=== PATIENT | female | born 1995 | race Caucasian/White ===

== ENCOUNTER 2017-01-11 04:56 | Emergency (ER) | payer MEDICAID | END 2017-01-11 05:32 | disposition home or self-care (01) | DX: H61.23 Impacted cerumen, bilateral (principal); J45.909 Unspecified asthma, uncomplicated ==

== ENCOUNTER 2017-05-30 13:44 | Emergency (ER) | payer MEDICAID ==
[2017-05-30 13:57] VITALS: BP 119/79
[2017-05-30] MEDS ORDERED: IBUPROFEN 800 MG TABLET PO STA (15:25)
--- NOTE | 2017-05-30 15:27 | ED Physician Documentation ---
PD HPI LOWER EXT INJURY - Stated complaint Stated Complaint: L 2ND TOE PAIN - Chief complaint Chief Complaint: Ext Problem - History obtained from History obtained from: Patient - History of Present Illness PD HPI LOW EXT INJURY LOCATION: Left, Toe (2nd, 3rd) Where injury occurred: Home Timing - onset: How many days ago (2-3) Timing - duration: Days Timing - details: Gradual onset Pain level max: 7 Pain level now: 1 Improved by: Rest, Immobilization Worsened by: Moving, Palpating, Other (Ambulation) Associated symptoms: No: Weakness, Numbness, Tingling, Swelling, Discolored - Additional information Additional information: Patient states that she hurt her left second toe while doing lunges. 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 : None HEENT: None Musculoskeletal: None Derm: None - Past Surgical History Past Surgical History: Yes HEENT: Myringotomy (tubes) - Present Medications Home Medications: Ambulatory Orders Medication Instructions Recorded Confirmed Bcp 1 tab PO DAILY 04/05/14 01/11/17 Lamotrigine [Lamictal] 250 mg PO DAILY 04/05/14 01/11/17 Carbamide Peroxide Otic Drop 10 drops OT ONCE #1 bottle 01/11/17 [Debrox Otic Drops] Ergocalciferol [Vitamin D2] 50,000 unit PO Q7D 01/11/17 01/11/17 - Allergies Allergies/Adverse Reactions: Allergies Allergy/AdvReac Type Severity Reaction Status Date / Time No Known Drug Allergies Allergy Verified 01/11/17 05:02 - Social History Does the pt smoke?: No Smoking Status: Never smoker Does the pt drink ETOH?: No Does the pt have substance abuse?: No - Immunizations Immunizations are current?: Yes - POLST Patient has POLST: No PD ED PE NORMAL - Vitals Vital signs reviewed: Yes - General General: Alert and oriented X 3, No acute distress - Derm Derm: Warm and dry - Extremities Extremities: Other (No tenderness to palpation over the left foot including the toes. No swelling. No ecchymosis. There is pain with ambulation or flexion/ extension of the second and third toes. Neurovascularly intact) - Neuro Neuro: Alert and oriented X 3 - Psych Psych: Normal mood, Normal affect Results - Vitals Vitals: Vital Signs - 24 hr 05/30/17 13:52 Temperature 36.0 C L Heart Rate 113 H Respiratory 20 Rate Blood Pressure 119/79 O2 Saturation 99 Oxygen O2 Source Room air PD MEDICAL DECISION MAKING - ED course Complexity details: considered differential, d/w patient, d/w family ED course: Patient is a 21-year-old female with a left second and third toe sprain. No bony tenderness to suggest fracture. No ecchymosis. No swelling. Will place in the postoperative shoe. Patient to follow-up with her PCP. Patient counseled regarding signs and symptoms for which I believe and urgent re- evaluation would be necessary. Patient with good understanding of and agreement to plan and is comfortable going home at this time This document was made in part using voice recognition software. While efforts are made to proofread this document, sound alike and grammatical errors may occur. Departure - Departure Disposition: 01 Home, Self Care Clinical Impression: Sprain of toe Qualifiers: Encounter type: initial encounter Qualified Code(s): S93.509A - Unspecified sprain of unspecified toe(s), initial encounter Condition: Good Instructions: ED Sprain Toe Follow-Up: Nalini Beyer ARNP [Primary Care Provider] - Within 1 week Comments: Wear the postoperative shoe for at least the next week. This should help with the pain and allow the toe to heal. Return if you worsen Discharge Date/Time: 05/30/17 15:45
[2017-05-30] MEDS ORDERED: IBUPROFEN 600 MG TABLET PO ONE (15:32)
[2017-05-30] MEDS ORDERED: IBUPROFEN 600 MG TABLET PO STA (15:37)
== END 2017-05-30 15:45 | disposition home or self-care (01) ==
LOC: ED 13:44
DX: S93.505A Unspecified sprain of left lesser toe(s), initial encounter (principal); X50.0XXA Overexertion from strenuous movement or load, initial encounter; Y93.B9 Activity, other involving muscle strengthening exercises; Y92.019 Unspecified place in single-family (private) house as the place of occurrence of the external cause; J45.909 Unspecified asthma, uncomplicated
CPT/HCPCS: 99282; 99283; A9270

== ENCOUNTER 2017-06-03 11:12 | Emergency (ER) | payer MEDICAID ==
[2017-06-03] MEDS ORDERED: IBUPROFEN 400 MG TABLET PO STA (12:11)
[2017-06-03] MEDS ORDERED: IBUPROFEN 400 MG TABLET PO ONE (12:18)
--- NOTE | 2017-06-03 12:55 | XRAY Preliminary Report ---
Exam: XR Toe(s) LT IMPRESSION: Negative toe radiography. [facility] SITE ID: [id number]
--- NOTE | 2017-06-03 12:56 | XRAY Report ---
EXAM: LEFT TOE RADIOGRAPHY EXAM DATE: 06/03/2017 12:39 PM. CLINICAL HISTORY: 2nd toe pain after twist. COMPARISON: None. TECHNIQUE: 3 views. FINDINGS: Bones: Normal. No fracture or bone lesion. Joints: Normal. No subluxations. Soft Tissues: Normal. No soft tissue swelling. IMPRESSION: Negative toe radiography. [facility] Referring Provider Line: [phone] SITE ID: [id number]
--- NOTE | 2017-06-03 13:40 | ED Physician Documentation ---
History of Present Illness - Stated complaint Stated Complaint: BILAT FOOT PX - Chief complaint Chief Complaint: Ext Problem - Additonal information Additional information: 21 y/o f twisetd her L foot several weeks ago pain to L 2nd toe since now her right foot hurts too seen in ER for same, dx sprain, rec hard sole shoe and motrin, wearing shoe, last took motrin 4 days ago, sill has pain, has not seen PMD for same Review of Systems : reports: LMP (approx 1-2 weeks ago) PD PAST MEDICAL HISTORY - Past Medical History Cardiovascular: Murmur Respiratory: Asthma Neuro: Seizure disorder Endocrine/Autoimmune: None GI: None 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 : None HEENT: None Musculoskeletal: None Derm: None - Past Surgical History Past Surgical History: Yes HEENT: Myringotomy (tubes) - Present Medications Home Medications: Ambulatory Orders Medication Instructions Recorded Confirmed Bcp 1 tab PO DAILY 04/05/14 06/03/17 Lamotrigine [Lamictal] 250 mg PO DAILY 04/05/14 06/03/17 Carbamide Peroxide Otic Drop 10 drops OT ONCE #1 bottle 01/11/17 06/03/17 [Debrox Otic Drops] Ergocalciferol [Vitamin D2] 50,000 unit PO Q7D 01/11/17 06/03/17 - Allergies Allergies/Adverse Reactions: Allergies Allergy/AdvReac Type Severity Reaction Status Date / Time No Known Drug Allergies Allergy Verified 06/03/17 11:44 - Social History Does the pt smoke?: No Smoking Status: Never smoker Does the pt drink ETOH?: No Does the pt have substance abuse?: No - Immunizations Immunizations are current?: Yes - POLST Patient has POLST: No PD ED PE NORMAL - Vitals Vital signs reviewed: Yes - Extremities Extremities: Other (vinny feet : no deformity, no pain with ROM, pt states toe hurts with wt bearing, MSV intact) Results - Vitals Vitals: Vital Signs - 24 hr 06/03/17 11:22 Temperature 36.2 C L Heart Rate 92 Respiratory 18 Rate Blood Pressure 130/88 H O2 Saturation 100 Oxygen O2 Source Room air PD MEDICAL DECISION MAKING - ED course ED course: L hurts more so xrayed that food and it is neg Departure - Departure Disposition: 01 Home, Self Care Clinical Impression: Sprain of foot, unspecified site Qualifiers: Encounter type: initial encounter Laterality: unspecified laterality Qualified Code(s): S93.609A - Unspecified sprain of unspecified foot, initial encounter Condition: Good Instructions: ED Sprain Foot Follow-Up: Nalini Beyer ARNP [Primary Care Provider] - Comments: The xray was fine - no fracture Continue the motrin as needed for pain and the hard sole shoe. Ice applied for 20 min at a time and elevation will help too And please have your PMD recheck your blood pressure - it was high today
[2017-06-03 13:57] VITALS: BP 119/77
== END 2017-06-03 13:55 | disposition home or self-care (01) ==
LOC: ED 11:12
DX: S93.601A Unspecified sprain of right foot, initial encounter (principal); S93.602A Unspecified sprain of left foot, initial encounter; X58.XXXA Exposure to other specified factors, initial encounter; J45.909 Unspecified asthma, uncomplicated
CPT/HCPCS: 73660; 99282; 99283; A9270

== ENCOUNTER 2017-06-10 10:04 | Outpatient (CLI) | payer MEDICAID ==
[2017-06-10 13:23] LABS: ALBUMIN/GLOBULIN RATIO 1.1 (1.0-2.2); BILIRUBIN,TOTAL 0.4 mg/dL (0.2-1.0); CALCIUM 9.3 mg/dL (8.5-10.3); CREATININE 0.7 mg/dL (0.4-1.0); POTASSIUM 4.1 mmol/L (3.5-5.0); TOTAL PROTEIN 7.5 g/dL (6.7-8.2)
== END 2017-06-10 10:05 | disposition home or self-care (01) ==
LOC: LAB.N 10:04
PROVIDERS: ATTEND Nurse Practitioner Gerontology
DX: Q85.1 Tuberous sclerosis (principal)
CPT/HCPCS: 36415; 80053; 82043

== ENCOUNTER 2017-10-10 16:39 | Emergency (ER) | payer MEDICAID ==
[2017-10-10 17:35] VITALS: BP 122/82
--- NOTE | 2017-10-10 18:23 | XRAY Preliminary Report ---
Exam: XR HAND 3 VIEW LT IMPRESSION: No fracture. [facility] SITE ID: [id number]
--- NOTE | 2017-10-10 18:26 | XRAY Report ---
EXAM: LEFT HAND RADIOGRAPHY EXAM DATE: 10/10/2017 05:51 PM. CLINICAL HISTORY: Injured fingers when hand jammed against door. COMPARISON: None. TECHNIQUE: 3 views. FINDINGS: Bones: Normal. No fractures or bone lesions. Joints: Normal. No subluxations. Soft Tissues: No soft tissue foreign body. IMPRESSION: No fracture. [facility] Referring Provider Line: [phone] SITE ID: [id number]
--- NOTE | 2017-10-10 18:32 | ED Physician Documentation ---
PD HPI UPPER EXT INJURY - Stated complaint Stated Complaint: FINGER INJURY - Chief complaint Chief Complaint: Ext Problem - History obtained from History obtained from: Patient - History of Present Illness Location: Other (She jammed her left fourth and fifth fingers into a door earlier today and has mild pain in the area of the interphalangeal joints of the fourth and fifth fingers.) Review of Systems Constitutional: reports: Reviewed and negative Cardiac: reports: Reviewed and negative Respiratory: reports: Reviewed and negative PD PAST MEDICAL HISTORY - Past Medical History Past Medical History: Yes Cardiovascular: Murmur Respiratory: Asthma Neuro: Seizure disorder Endocrine/Autoimmune: None GI: None 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 : None HEENT: None Musculoskeletal: None Derm: None - Past Surgical History Past Surgical History: Yes HEENT: Myringotomy (tubes) - Present Medications Home Medications: Ambulatory Orders Medication Instructions Recorded Confirmed Ergocalciferol [Vitamin D2] 50,000 unit PO Q7D 01/11/17 10/10/17 Lamotrigine [Lamotrigine ER] 600 mg PO DAILY 10/10/17 10/10/17 - Allergies Allergies/Adverse Reactions: Allergies Allergy/AdvReac Type Severity Reaction Status Date / Time No Known Drug Allergies Allergy Verified 06/03/17 11:44 - Social History Does the pt smoke?: No Smoking Status: Never smoker Does the pt drink ETOH?: No Does the pt have substance abuse?: No - Immunizations Immunizations are current?: Yes - POLST Patient has POLST: No PD ED PE NORMAL - Vitals Vital signs reviewed: Yes - General General: Alert and oriented X 3, No acute distress - Extremities Extremities: Other (No significant tenderness or obvious deformity of the left hand, good range of motion, NVI in all the digits.) - Neuro Neuro: Alert and oriented X 3, Normal speech Results - Vitals Vitals: Vital Signs - 24 hr 10/10/17 17:31 Temperature 36.6 C Heart Rate 89 Respiratory 20 Rate Blood Pressure 122/82 H O2 Saturation 97 Oxygen O2 Source Room air - Rads (name of study) L hand 3v Radiology: EMP read contemporaneously (normal) Departure - Departure Disposition: 01 Home, Self Care Clinical Impression: Sprain of finger of left hand Qualifiers: Encounter type: initial encounter Finger: ring finger Sprain of finger site: interphalangeal joint Qualified Code(s): S63.818G - Sprain of interphalangeal joint of left ring finger, initial encounter Condition: Good Record reviewed to determine appropriate education?: Yes Instructions: ED Sprain Finger Comments: Recheck with your physician in 1 week if still painful. Your blood pressure was elevated today on check into the emergency department. This does not mean that you have hypertension, it is a common phenomenon to come to the emergency department and have elevated blood pressure. I recommend that you see your primary care physician within the week to have it rechecked when you are feeling better.
== END 2017-10-10 18:34 | disposition home or self-care (01) ==
LOC: ED 16:39
DX: S63.635A Sprain of interphalangeal joint of left ring finger, initial encounter (principal); R03.0 Elevated blood-pressure reading, without diagnosis of hypertension; W22.8XXA Striking against or struck by other objects, initial encounter
CPT/HCPCS: 99282; 99283

== ENCOUNTER 2018-10-18 14:25 | Emergency (ER) | payer MEDICAID ==
[2018-10-18 14:36] VITALS: BP 124/80
[2018-10-18 15:39] LABS: BILIRUBIN,URINE NEGATIVE (NEGATIVE); GLUCOSE, URINE (UA) NEGATIVE (NEGATIVE); KETONES,URINE (UA) NEGATIVE (NEGATIVE); LEUKOCYTE ESTERASE, URINE NEGATIVE (NEGATIVE); NITRITE,URINE NEGATIVE (NEGATIVE); OCCULT BLOOD,URINE NEGATIVE (NEGATIVE); PROTEIN,URINE NEGATIVE (NEGATIVE); UROBILINOGEN,URINE 0.2 (NORMAL) E.U./dL (NORMAL)
[2018-10-18 15:41] LABS: CLARITY,URINE CLEAR (CLEAR); HCG UR QUAL NEGATIVE
[2018-10-18] MEDS ORDERED: DEXAMETHASONE 10 MG/ML VIAL PO STA (15:44)
--- NOTE | 2018-10-18 15:47 | ED Physician Documentation ---
PD HPI BACK PAIN - Stated complaint Stated Complaint: R SIDE BACK PAIN - Chief complaint Chief Complaint: Back Pain - History obtained from History obtained from: Patient, Family - History of Present Illness Timing - onset: How many days ago (2) Timing - duration: Days (2) Timing - details: Abrupt onset, Still present Location: Mid, Right Quality: Pain, Spasm, Sharp Associated symptoms: No: Fever, Weakness, Numbness, Incontinent of urine, Unable to urinate, Hematuria, Incontinent of stool Improves with: Rest, Position Worsened by: Movement, Twisting, Palpation Contributing factors: Twisting Similar symptoms before: Has not had sx before Recently seen: Not recently seen - Additional information Additional information: 23-year-old female states that she went to roll over in bed and felt a sudden pop in her back and has pain on the right side. She has pain with certain positioning and with palpation. She has pain with certain movements. She does not have continuous pain. She denies any urinary symptoms denies any nausea vomiting Review of Systems Constitutional: denies: Fever, Chills Eyes: denies: Decreased vision Ears: denies: Ear pain Nose: denies: Rhinorrhea / runny nose, Congestion Throat: denies: Sore throat Cardiac: denies: Chest pain / pressure, Palpitations Respiratory: denies: Dyspnea, Cough GI: denies: Abdominal Pain, Nausea, Vomiting : denies: Dysuria, Frequency Skin: denies: Rash, Lesions Musculoskeletal: reports: Back pain. 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 : None HEENT: None Musculoskeletal: None Derm: None Other Past Medical History: Tuberous sc - Past Surgical History Past Surgical History: Yes HEENT: Myringotomy (tubes) - Present Medications Home Medications: Ambulatory Orders Medication Instructions Recorded Confirmed Ergocalciferol [Vitamin D2] 50,000 unit PO Q7D 01/11/17 10/18/18 Lamotrigine [Lamotrigine ER] 700 mg PO DAILY 10/10/17 10/18/18 Medroxyprogesterone Acetate 150 mg IM ONCE 10/18/18 10/18/18 [Depo-Provera] - Allergies Allergies/Adverse Reactions: Allergies Allergy/AdvReac Type Severity Reaction Status Date / Time No Known Drug Allergies Allergy Verified 10/18/18 14:36 - Social History Does the pt smoke?: No Smoking Status: Never smoker Does the pt drink ETOH?: No Does the pt have substance abuse?: No - Immunizations Immunizations are current?: Yes - POLST Patient has POLST: No PD ED PE NORMAL - Vitals Vital signs reviewed: Yes (normal ) - General General: Alert and oriented X 3, No acute distress, Well developed/nourished - HEENT HEENT: Atraumatic, PERRL, EOMI - Neck Neck: Supple, no meningeal sign, No bony TTP - Cardiac Cardiac: RRR, No murmur - Respiratory Respiratory: No respiratory distress, Clear bilaterally - Abdomen Abdomen: Soft, Non tender, No organomegaly - Back Back: No spinal TTP, Other (There is tendernes over the right flank reproducing the pain the patient is experiencing. The pain seems over the posterior ribs on the right. ) - Derm Derm: Normal color, Warm and dry, No rash - Extremities Extremities: No deformity, No edema - Neuro Neuro: No motor deficit, No sensory deficit, Normal speech Eye Opening: Spontaneous Motor: Obeys Commands Verbal: Oriented GCS Score: 15 - Psych Psych: Normal mood, Normal affect Results - Vitals Vitals: Vital Signs - 24 hr 10/18/18 14:34 Temperature 36.8 C Heart Rate 99 Respiratory 18 Rate Blood Pressure 124/80 O2 Saturation 100 Oxygen O2 Source Room air - Labs Labs: Laboratory Tests 10/18/18 15:19 Urine Color YELLOW Urine Clarity CLEAR Urine pH 5.0 Ur Specific Sayre >=1.030 H Urine Protein NEGATIVE Urine Glucose (UA) NEGATIVE Urine Ketones NEGATIVE Urine Occult Blood NEGATIVE Urine Nitrite NEGATIVE Urine Bilirubin NEGATIVE Urine Urobilinogen 0.2 (NORMAL) Ur Leukocyte Esterase NEGATIVE Ur Microscopic Review NOT INDICATED Urine Culture Comments NOT INDICATED Urine HCG, Qual NEGATIVE Procedures - Bedside sono Bedside sono by EMP: With use of bedside ultrasound the right kidney kidney is imaged. There is no evidence of hydronephrosis the tissue around the kidney is sonographically tender it is difficult to tell whether the kidney itself is tender. PD MEDICAL DECISION MAKING - ED course Complexity details: reviewed results, re-evaluated patient, considered differential, d/w patient, d/w family ED course: 23-year-old female with right flank pain that appears musculoskeletal has a negative urinalysis she is administered dexamethasone 10 mg orally. She does not appear to require narcotic pain reliever for this. Departure - Departure Disposition: 01 Home, Self Care Clinical Impression: Strain of mid-back Qualifiers: Encounter type: initial encounter Qualified Code(s): S29.012A - Strain of muscle and tendon of back wall of thorax, initial encounter Condition: Stable Instructions: ED Sprain Strain Lumbar Follow-Up: Nalini Beyer ARNP [Primary Care Provider] - Comments: Today it appears your pain is related to the muscles in your back. It is important to stay hydrated and take some Tylenol or Advil for the pain. The dexamethasone should help with this later on today.
== END 2018-10-18 16:04 | disposition home or self-care (01) ==
LOC: ED 14:25
DX: S29.012A Strain of muscle and tendon of back wall of thorax, initial encounter (principal); X50.1XXA Overexertion from prolonged static or awkward postures, initial encounter; Y93.89 Activity, other specified
CPT/HCPCS: 81001; 81003; 81025; 87086; 99283

== ENCOUNTER 2019-02-16 16:46 | Outpatient (CLI) | payer MEDICAID ==
[2019-02-16] MEDS ORDERED: GADOBUTROL 10 MMOL/10 ML VIAL ONE (17:08)
[2019-02-16] MEDS ORDERED: GADOBUTROL 10 MMOL/10 ML VIAL IVP ONE (18:02)
--- NOTE | 2019-02-17 13:39 | MRI Report ---
Reason: TUBEROUS SCLEROSIS, SYMPTOMATIC EPILEPSY EPILEPT Procedure Date: 02/16/2019 Accession Number: [id number] / [id number] Procedure: MRI - Brain W/WO CPT Code: FULL RESULT: EXAM: MRI BRAIN WITHOUT AND WITH CONTRAST EXAM DATE: 02/16/2019 06:20 PM. 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 Evaluate intracranial pathology. COMPARISON: None. TECHNIQUE: Multiplanar, multisequence T1-weighted and fluid-sensitive MR sequences of the brain were performed. Sequences optimized for epilepsy evaluation. Other: None. IV Contrast: 9 mL Gadavist. FINDINGS: Brain Volume: The left and right hippocampi measure 4.26 and 4.06 mL respectively. The hippocampus asymmetry index of 4.78% is normal. The total volume of the hippocampi measure 0.50% of intracranial volume corresponding to the 23rd normative percentile. Parenchyma: No acute hemorrhage or stroke. There are numerous scattered foci of abnormal peripheral cerebral T2 hyperintensity consistent with findings of cortical/subcortical tubers, typical stigmata of tuberous sclerosis. No evidence for intracranial enhancing or space occupying mass. No obvious subependymoma calcifications. No significant asymmetry or focal lesion of the hippocampi. Ventricles/Cisterns: No hydrocephalus. No abnormal extra-axial fluid collection or hemorrhage. Orbits: No evidence for exophthalmos, acute edema or mass. Nonspecific prominence of both optic nerve sheaths. Sella Turcica: The pituitary gland, cavernous sinuses, suprasellar cistern and optic chiasm are unremarkable. IAC: Symmetric and unremarkable. Vasculature: Normal signal flow void is seen in the major arterial structures at the skull base. The dural sinuses are patent and enhance normally. Sinuses: Small retention cysts. Bones: No focal pathologic appearing marrow signal changes. Other: None. IMPRESSION: 1. No acute abnormality or enhancing mass. 2. Multiple scattered peripheral cerebral T2 hyperintensities consistent with typical stigmata of tuberous sclerosis complex. 3. No evidence for intraventricular enhancing mass or obvious subependymal calcified nodules. 4. Unremarkable and grossly symmetric appearance of the hippocampi. [facility]
== END 2019-02-16 16:47 | disposition home or self-care (01) ==
LOC: DI 16:46
PROVIDERS: ATTEND Psychiatry & Neurology Neurology
DX: G40.219 Localization-related (focal) (partial) symptomatic epilepsy and epileptic syndromes with complex partial seizures, intractable, without status epilepticus (principal); Q85.1 Tuberous sclerosis
CPT/HCPCS: 70553; A9585

== ENCOUNTER 2019-02-19 08:24 | Outpatient (CLI) | payer MEDICAID ==
--- NOTE | 2019-02-19 11:18 | Ultrasound Report ---
Reason: TUBEROUS SCLEROSIS Procedure Date: 02/19/2019 Accession Number: [id number] / [id number] Procedure: US - Abdomen Complete CPT Code: FULL RESULT: EXAM: ABDOMEN ULTRASOUND EXAM DATE: 02/19/2019 09:30 AM. CLINICAL HISTORY: TUBEROUS SCLEROSIS. COMPARISON: None. TECHNIQUE: Real-time scanning was performed with static images obtained. FINDINGS: Liver: The liver parenchyma is mildly echogenic. No suspicious mass. The vertical span is 17.2 cm. Main portal vein flow: Hepatopetal. Gallbladder: Normal. No stones, wall thickening, or sonographic Palacio's sign. Biliary System: Common bile duct measures 4 mm which is at the upper limits of normal.. No intrahepatic or extrahepatic ductal dilatation. Pancreas: Obscured by overlying bowel gas. Kidneys: Right: The right renal length is 10 cm. Normal. No contour-deforming mass, stones, or hydronephrosis. Left: 11.0 cm longitudinally. Minor parenchymal scarring. No suspicious mass. Spleen: Vertical span is 11.5 cm. Normal in size and echotexture. Aorta and Inferior Vena Cava: Portions of the abdominal aorta are obscured by overlying bowel gas, but grossly normal. Other: None. IMPRESSION: 1. The liver parenchyma is mildly echogenic, most often associated with steatosis. No suspicious mass. 2. Normal gallbladder and biliary tree. 3. The pancreas cannot be evaluated. 4. No other significant abnormality. [facility]
== END 2019-02-19 08:25 | disposition home or self-care (01) ==
LOC: DI 08:24
PROVIDERS: ATTEND Internal Medicine
DX: Q85.1 Tuberous sclerosis (principal)
CPT/HCPCS: 76700

== ENCOUNTER 2020-09-22 08:53 | Outpatient (CLI) | payer MEDICAID ==
--- NOTE | 2020-09-22 10:09 | XRAY Report ---
PROCEDURE: Hand 3 View RT INDICATIONS: RIGHT HAND SPRAIN TECHNIQUE: 3 views of the hand(s) acquired. COMPARISON: None FINDINGS: Bones: No fractures or dislocations. No suspicious bony lesions. Soft tissues: No suspicious soft tissue calcifications. IMPRESSION: No osseous trauma found. Source of pain after trauma is not seen. Reviewed by: Vinod Llanos MD on 09/22/2020 10:08 AM [facility] Approved by: Vinod Llanos MD on 09/22/2020 10:08 AM [facility] Station ID: [id number]
== END 2020-09-22 08:54 | disposition home or self-care (01) ==
LOC: DI 08:53
PROVIDERS: ATTEND Internal Medicine
DX: S63.8X1A Sprain of other part of right wrist and hand, initial encounter (principal)

== ENCOUNTER 2021-01-22 15:32 | Outpatient (CLI) | payer MEDICAID ==
--- NOTE | 2021-01-22 18:32 | Ultrasound Report ---
PROCEDURE: Pelvic Complete INDICATIONS: HIRSUTIUSM, PCOS TECHNIQUE: Real-time transabdominal scanning was performed of the pelvic organs, with image documentation. COMPARISON: None. FINDINGS: Uterus: Uterus is normal in size at 7.6 x 2.7 x 5.1 cm. Endometrium measures 4 mm in combined thick ness. Ovaries: The right ovary measures 3.1 x 1.3 x 1.9 cm (4 mL). The left ovary measures 2.4 x 1.4 x 2.1 cm (3.8 mL). Of note, the patient refused transvaginal scanning and individual ovarian follicles are not well visualized. Other: No free pelvic fluid. IMPRESSION: No significant abnormality is identified in the pelvis. The ovaries are normal in size and symmetric. Ovarian follicles are not well visualized on transabdominal imaging. Reviewed by: Reggie Mullen MD on 01/22/2021 5:31 PM [facility] Approved by: Reggie Mullen MD on 01/22/2021 5:31 PM [facility] Station ID: [id number]
== END 2021-01-22 15:33 | disposition home or self-care (01) ==
LOC: DI 15:32
PROVIDERS: ATTEND Internal Medicine
DX: L68.0 Hirsutism (principal)

== ENCOUNTER 2021-02-26 11:51 | Emergency (ER) | payer MEDICAID ==
--- OUTSIDE RECORDS SUMMARY | 2021-02-26 12:10 | EXTERNAL MEDICAL SUMMARY RPT | Continuity of Care Document ---
:1995 Demographics Phone Unavailable Preferred Language Unknown Marital Status Unknown Mu-Ism Affiliation Unknown Race Unknown Ethnic Group Unknown Author Organization [facility] Address [address] [place] [address] Phone Social History date description facility [id number]
--- NOTE | 2021-02-26 12:44 | ED Physician Documentation ---
PD HPI LOWER EXT INJURY - Stated complaint Stated Complaint: LT FT PX - Chief complaint Chief Complaint: Ext Problem - History obtained from History obtained from: Patient - History of Present Illness PD HPI LOW EXT INJURY LOCATION: Left, Foot (mid to distal MT area of 2-4 MTs. Some pain medial arch area.) Type of injury: Twist (she believes she twisted her foot/ankle and started with pain the following day or so. Has had persistent pain with walking since.) Where injury occurred: Home Timing - onset: How many weeks ago (2-3) Timing - duration: Weeks (she did have some pain in foot and ankle around Soo time but not persistent. Had pain the past few weeks with mild new twisting injury. No redness, rash nor sores.) Timing - details: Gradual onset, Still present, Waxing and waning Improved by: Rest Worsened by: Moving, Other (walking with the most pain on the stepoff portion of gait.). No: Palpating Associated symptoms: Swelling (near base of great toe and on top of foot intermittently.). No: Weakness, Numbness Similar symptoms before: No diagnosis (seen by PMD and was told to use ev for swelling and presumed it would improve. 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 ) Derm: None - Past Surgical History Past Surgical History: Yes HEENT: Myringotomy (tubes) - Present Medications Home Medications: Ambulatory Orders Medication Instructions Recorded Confirmed Ergocalciferol [Vitamin D2] 50,000 unit PO Q7D 01/11/17 02/26/21 Lamotrigine [Lamotrigine ER] 700 mg PO DAILY 10/10/17 02/26/21 Medroxyprogesterone Acetate 150 mg IM ONCE 10/18/18 02/26/21 [Depo-Provera] Naproxen [EC-Naproxen] 500 mg PO BID #15 02/26/21 - Allergies Allergies/Adverse Reactions: Allergies Allergy/AdvReac Type Severity Reaction Status Date / Time No Known Drug Allergies Allergy Verified 02/26/21 12:06 - Social History Does the pt smoke?: No Smoking Status: Never smoker Does the pt drink ETOH?: No Does the pt have substance abuse?: No - Immunizations Immunizations are current?: Yes - POLST Patient has POLST: No PD ED PE NORMAL - Vitals Vital signs reviewed: Yes - General General: Alert and oriented X 3, No acute distress, Well developed/nourished - Derm Derm: Normal color, Warm and dry, No rash - Extremities Extremities: Other (left foot with some tenderness mid foot over 2-4 MTs area. No sores, redness, swelling nor rash. Not tender at great toe MTP. Torsional movement of the foot causes some mild pain. Ankle is not tender and no pain with inversion/eversion. ) - Neuro Neuro: Alert and oriented X 3, No motor deficit, No sensory deficit Results - Vitals Vitals: Vital Signs - 24 hr 02/26/21 02/26/21 12:03 14:01 Temperature 36.4 C L 37.4 C Heart Rate 116 H 88 Respiratory 16 18 Rate Blood Pressure 128/88 H 120/85 H O2 Saturation 99 99 Oxygen O2 Source Room air - Rads (name of study) left foot Radiology: Prelim report reviewed (no acute process), See rad report PD MEDICAL DECISION MAKING - ED course Complexity details: considered differential (seems sprain/tendonitis of the foot. No signs of gout. no fractures. ), d/w patient Departure - Departure Disposition: 01 Home, Self Care Clinical Impression: Foot sprain Qualifiers: Encounter type: initial encounter Laterality: left Qualified Code(s): S93.602A - Unspecified sprain of left foot, initial encounter Condition: Stable Record reviewed to determine appropriate education?: Yes Instructions: ED Sprain Foot Follow-Up: Francisco Barragan MD [Primary Care Provider] - Tarik Renteria DPM [Physician No Access] - Prescriptions: Naproxen [EC-Naproxen] 500 mg PO BID #15 Comments: Your x-ray as well as the exam of your foot seem good. No fractures or abnormality on the x-ray. I think your symptoms are a sprain of the foot and some inflammation of the ligaments and tendons (tendinitis). Try the postop shoe/firm soled shoe when up and around for the next week to reduce the amount of motion and stress on the ligaments of the foot. Use an anti-inflammatory such as naproxen twice daily with food for the next week. 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 Discharge Date/Time: 02/26/21 14:04
--- NOTE | 2021-02-26 12:54 | XRAY Report ---
PROCEDURE: Foot 3 View LT INDICATIONS: L foot pain TECHNIQUE: 3 views of the foot were acquired. COMPARISON: X-ray left toes 06/03/2017 FINDINGS: Bones: No fractures or dislocations. No suspicious bony lesions. Soft tissues: No tibiotalar joint effusion. Achilles tendon appears normal. IMPRESSION: No visualized acute fracture or dislocation. However, occult injury cannot be excluded. Recommend azalea rt interval imaging follow-up in 7-10 days as clinically indicated for additional evaluation. Reviewed by: Oralia Barraza MD on 02/26/2021 11:53 AM [facility] Approved by: Oralia Barraza MD on 02/26/2021 11:53 AM [facility] Station ID: [id number]
[2021-02-26] MEDS ORDERED: IBUPROFEN 600 MG TABLET PO STA (13:35)
[2021-02-26 14:02] VITALS: BP 120/85
== END 2021-02-26 14:04 | disposition home or self-care (01) ==
LOC: ED 11:51
DX: S93.602A Unspecified sprain of left foot, initial encounter (principal); X50.1XXA Overexertion from prolonged static or awkward postures, initial encounter; Y92.009 Unspecified place in unspecified non-institutional (private) residence as the place of occurrence of the external cause
CPT/HCPCS: 73630; 99283; A9270

== ENCOUNTER 2021-04-18 18:22 | Outpatient (CLI) | payer MEDICAID ==
--- NOTE | 2021-04-19 08:28 | XRAY Report ---
PROCEDURE: Thoracic Spine 2 View INDICATIONS: Back Pain TECHNIQUE: 3 views of the thoracic spine were acquired. COMPARISON: None. FINDINGS: Bones: No fractures or dislocations. No suspicious bony lesions. 12 pairs of ribs are noted, and a ppear intact where visualized. Mild rightward curvature of the upper thoracic spine to the right is n oted with a Stiles angle of 60 degrees centered at T6.. Soft tissues: No paravertebral stripe thickening. IMPRESSION: 1. No acute abnormality of the thoracic spine. 2. Mild rightward curvature of the upper thoracic spine with a Stiles angle of 6 degrees centered at T6 . Reviewed by: Yo Barrios on 04/19/2021 8:27 AM PDT Approved by: Yo Barrios on 04/19/2021 8:27 AM PDT Station ID: [id number]
--- NOTE | 2021-04-19 08:34 | XRAY Report ---
PROCEDURE: Lumbar Spine 2 View INDICATIONS: Back Pain TECHNIQUE: 3 views of the lumbar spine were acquired. COMPARISON: None. FINDINGS: Bones: 5 [id number] vertebrae are present. There is normal bony alignment. No vertebral body compression fractures. No suspicious bony lesions. T11 has a limbus vertebra anteroinferiorly an in cidental finding that is usually asymptomatic. Soft tissues: Overlying bowel gas pattern is normal. No suspicious soft tissue calcifications. IMPRESSION: No acute abnormality of the lumbar spine. Reviewed by: Yo Barrios on 04/19/2021 8:32 AM PDT Approved by: Yo Barrios on 04/19/2021 8:32 AM PDT Station ID: [id number]
== END 2021-04-18 23:59 | disposition home or self-care (01) ==
LOC: DI 18:22
PROVIDERS: ATTEND Internal Medicine
DX: M54.9 Dorsalgia, unspecified (principal); M43.8X4 Other specified deforming dorsopathies, thoracic region

== ENCOUNTER 2022-01-25 13:33 | Outpatient (CLI) | payer MEDICAID ==
[2022-01-25 13:53] LABS: BASOPHILS % (AUTO) 0.6 %; EOSINOPHILS # (AUTO) 0.1 10^3/uL (0.0-0.7); EOSINOPHILS % (AUTO) 2.2 %; HGB - HEMOGLOBIN 12.4 g/dL (12.0-16.0); LYMPHOCYTES # (AUTO) 1.8 10^3/uL (1.5-3.5); LYMPHOCYTES % (AUTO) 33.4 %; MEAN CORPUSCULAR HGB CONC 34.4 g/dL (32.0-36.0); MEAN PLATELET VOLUME 10.3 fL (7.9-10.8); MONOCYTES # (AUTO) 0.3 10^3/uL (0.0-1.0); MONOCYTES % (AUTO) 5.8 %; NEUTROPHILS # (AUTO) 3.1 10^3/uL (1.5-6.6); NEUTROPHILS % (AUTO) 57.8 %; PLT - PLATELET COUNT 291 10^3/uL (130-450); RED BLOOD COUNT 3.87 10^6/uL (4.20-5.40); RED CELL DISTRIBUTION WIDTH 12.6 % (12.0-15.0); WHITE BLOOD COUNT 5.4 x10^3/uL (4.8-10.8)
[2022-01-25 14:13] LABS: ALBUMIN 4.2 g/dL (3.2-5.5); ALBUMIN/GLOBULIN RATIO 1.2 (1.0-2.2); ALKALINE PHOSPHATASE 56 IU/L (42-121); ALT ALANINE AMINOTRANSFERASE 20 IU/L (10-60); AST ASPARTATE AMINOTRANSFERASE 17 IU/L (10-42); BILIRUBIN,TOTAL 0.5 mg/dL (0.2-1.0); BUN - BLOOD UREA NITROGEN 8 mg/dL (6-20); CALCIUM 9.4 mg/dL (8.5-10.3); CARBON DIOXIDE - CO2 23 mmol/L (21-32); CHLORIDE 100 mmol/L (101-111); CHOL/HDL RATIO 4.3 (<4.4); CHOLESTEROL 230 mg/dL; CREATININE 0.7 mg/dL (0.4-1.0); GFR - MDRD 100 (>89); GLUCOSE 81 mg/dL (70-100); HDL CHOLESTEROL 53 mg/dL; LDL CHOLESTEROL,CALCULATED 156 mg/dL; LDL/HDL RATIO 2.9 (<4.4); POTASSIUM 3.9 mmol/L (3.5-5.0); SODIUM 137 mmol/L (135-145); TOTAL PROTEIN 7.6 g/dL (6.7-8.2); TRIGLYCERIDES 103 mg/dL; VLDL CHOLESTEROL 21 mg/dL
== END 2022-01-25 13:34 | disposition home or self-care (01) ==
LOC: LAB 13:33
PROVIDERS: ATTEND Internal Medicine
DX: E66.9 Obesity, unspecified (principal); E78.5 Hyperlipidemia, unspecified; R42 Dizziness and giddiness; Z79.899 Other long term (current) drug therapy
CPT/HCPCS: 36415; 80053; 80061; 83721; 84443; 85025

== ENCOUNTER 2022-05-03 08:00 | Outpatient (CLI) | payer MEDICAID ==
[2022-05-03 23:51] LABS: BACTERIAL VAGINOSIS DNA NEGATIVE (NEGATIVE); CANDIDA GLABRATA DNA NEGATIVE (NEGATIVE); CANDIDA GROUP DNA NEGATIVE (NEGATIVE); CANDIDA KRUSEI DNA NEGATIVE (NEGATIVE); TRICHOMONAS VAGINALIS DNA NEGATIVE (NEGATIVE)
== END 2022-05-03 23:59 | disposition home or self-care (01) ==
LOC: LAB.WC 08:00
PROVIDERS: ATTEND Obstetrics & Gynecology
DX: N89.8 Other specified noninflammatory disorders of vagina (principal)
CPT/HCPCS: 81514

== ENCOUNTER 2022-05-23 08:00 | Outpatient (CLI) | payer MEDICAID ==
[2022-05-23 16:32] LABS: BILIRUBIN,URINE NEGATIVE (NEGATIVE); GLUCOSE, URINE (UA) NEGATIVE (NEGATIVE); KETONES,URINE (UA) NEGATIVE (NEGATIVE); LEUKOCYTE ESTERASE, URINE NEGATIVE (NEGATIVE); NITRITE,URINE NEGATIVE (NEGATIVE); OCCULT BLOOD,URINE TRACE-INTA (NEGATIVE); PROTEIN,URINE NEGATIVE (NEGATIVE); UROBILINOGEN,URINE 0.2 (NORMAL) E.U./dL (NORMAL)
[2022-05-23 16:35] LABS: CLARITY,URINE CLEAR (CLEAR)
[2022-05-23 17:27] LABS: BACTERIA,URINE Few /HPF (None Seen); RBC,URINE 0-5 /HPF (0-5); SQUAMOUS EPITHELIAL CELL,UR FEW Squamous (<= Few); WBC,URINE 0-3 /HPF (0-5)
[2022-05-23 22:35] LABS: BACTERIAL VAGINOSIS DNA NEGATIVE (NEGATIVE); CANDIDA GLABRATA DNA NEGATIVE (NEGATIVE); CANDIDA GROUP DNA NEGATIVE (NEGATIVE); CANDIDA KRUSEI DNA NEGATIVE (NEGATIVE); TRICHOMONAS VAGINALIS DNA NEGATIVE (NEGATIVE)
[2022-05-23 23:17] LABS: CHLAMYDIA TRACHOMATIS DNA NEGATIVE (NEGATIVE); NEISSERIA GONORRHOEAE DNA NEGATIVE (NEGATIVE)
[2022-05-26 21:06] LABS: HSV-1 DNA Negative (Negative); HSV-2 DNA Negative (Negative)
== END 2022-05-23 23:59 | disposition home or self-care (01) ==
LOC: LAB 08:00
PROVIDERS: ATTEND Nurse Practitioner
DX: N76.0 Acute vaginitis (principal)
CPT/HCPCS: 81001; 81514; 87086; 87491; 87529; 87591; 87661

== ENCOUNTER 2022-08-07 12:50 | Outpatient (CLI) | payer MEDICAID ==
--- NOTE | 2022-08-07 17:09 | CT Report ---
PROCEDURE: HEAD WO INDICATIONS: TUBEROUS SCLEROSIS TECHNIQUE: Noncontrast 4.5 mm thick angled axial sections acquired from the foramen magnum to the vertex. For r adiation dose reduction, the following was used: automated exposure control, adjustment of mA and/or kV according to patient size. COMPARISON: Correlation is made with prior brain MRI, 02/16/2019 FINDINGS: Image quality: Excellent. CSF spaces: Basal cisterns are patent. No extra-axial fluid collections. Ventricles are normal in size and shape. Brain: No midline shift. No intracranial masses or hemorrhage. Crane-white matter interface is norm al. Skull and face: Calvarium and visualized facial bones are intact, without suspicious lesions. Sinuses: Visualized sinuses and mastoids are clear. IMPRESSION: No significant noncontrast head CT abnormality can be seen. No abnormal brain calcification can be seen. This patient's known lesions can be seen on the prior MRI. If clinically appropriate, please consider a follow-up brain MRI for further evaluation. Reviewed by: Edu Barrera MD on 08/07/2022 4:08 PM [facility] Approved by: Edu Barrera MD on 08/07/2022 4:08 PM [facility] Station ID: [id number]
== END 2022-08-07 12:51 | disposition home or self-care (01) ==
LOC: DI 12:50
PROVIDERS: ATTEND Internal Medicine
DX: Q85.1 Tuberous sclerosis (principal)

== ENCOUNTER 2022-08-10 16:18 | Emergency (ER) | payer MEDICAID ==
[2022-08-10 16:29] VITALS: BP 130/96
--- NOTE | 2022-08-10 17:16 | ED Physician Documentation ---
History of Present Illness - Stated complaint Stated Complaint: DIZZY,NAUSEA - Chief complaint Chief Complaint: General - History obtained from History obtained from: Patient, Family (Patient's mother) - Additonal information Additional information: Patient is a 27-year-old female with a history of tuberous sclerosis, epilepsy presenting for evaluation of intermittent episodes of feeling lightheaded, dizzy, having headaches for the last 8 months. She is unsure of any triggers. She had an episode this morning as she was laying down but it has since subsided.She sometimes feels faint with the episodes. She denies thunderclap in intensity to headaches. She denies vomiting. At times she reports feeling unsteady when she has the episodes.She denies falling. Patient is somewhat vague when answering questions. She denies chest pain, difficulty breathing. She does have a neurologist and takes medications for epilepsy. She just had a CT scan of her brain on August 07. She currently feels fine without any specific complaints. 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 ) Derm: None - Past Surgical History Past Surgical History: Yes HEENT: Myringotomy (tubes) - Present Medications Home Medications: Ambulatory Orders Medication Instructions Recorded Confirmed Ergocalciferol [Vitamin D2] 50,000 unit PO Q7D 01/11/17 02/26/21 Lamotrigine [Lamotrigine ER] 700 mg PO DAILY 10/10/17 02/26/21 Medroxyprogesterone Acetate 150 mg IM ONCE 10/18/18 02/26/21 [Depo-Provera] Naproxen [EC-Naproxen] 500 mg PO BID #15 02/26/21 - Allergies Allergies/Adverse Reactions: Allergies Allergy/AdvReac Type Severity Reaction Status Date / Time No Known Drug Allergies Allergy Verified 08/10/22 16:22 - Social History Does the pt smoke?: No Smoking Status: Never smoker Does the pt drink ETOH?: No Does the pt have substance abuse?: No - Immunizations Immunizations are current?: Yes - POLST Patient has POLST: No PD ED PE NORMAL - General General: Alert and oriented X 3, No acute distress, Well developed/nourished - HEENT HEENT: Atraumatic, PERRL, EOMI, Ears normal, Moist mucous membranes, Pharynx benign (Uvula is midline) - Cardiac Cardiac: RRR, Strong equal pulses - Respiratory Respiratory: No respiratory distress, Clear bilaterally - Abdomen Abdomen: Normal bowel sounds, Soft, Non tender, Non distended - Back Back: No CVA TTP - Derm Derm: Warm and dry - Extremities Extremities: No edema - Neuro Neuro: Alert and oriented X 3, surgical pathologist 2-12 intact, No motor deficit, No sensory deficit, Normal speech, Other (Normal gphrit-bl-wizm bilaterally) Results - Vitals Vitals: Vital Signs - 24 hr 08/10/22 16:22 Temperature 36.5 C Heart Rate 96 Respiratory 16 Rate Blood Pressure 130/96 H O2 Saturation 100 Oxygen O2 Source Room air - EKG (time done) 1737 Rate: Rate (enter#) (70) Rhythm: NSR [place]: Normal Intervals: No: Prolonged QT Ischemia: No: ST elevation c/w ischemia - Labs Labs: Laboratory Tests 08/10/22 08/10/22 17:23 17:23 WBC 5.7 RBC 4.25 Hgb 13.6 Hct 39.7 MCV 93.4 MCH 32.0 H MCHC 34.3 RDW 11.7 L Plt Count 307 MPV 9.6 Neut # (Auto) 3.3 Lymph # (Auto) 1.9 [place] # (Auto) 0.4 Eos # (Auto) 0.1 Baso # (Auto) 0.1 Absolute Nucleated RBC 0.00 Nucleated RBC % 0.0 Sodium 135 Potassium 3.4 L Chloride 102 Carbon Dioxide 27 Anion Gap 6.0 BUN 9 Creatinine 0.8 Estimated GFR (MDRD) 85 L Glucose 104 H Calcium 9.6 Total Bilirubin 0.5 AST 15 ALT 17 Alkaline Phosphatase 88 Total Protein 8.0 Albumin 4.7 Globulin 3.3 Albumin/Globulin Ratio 1.4 PD MEDICAL DECISION MAKING - ED course Complexity details: reviewed results, re-evaluated patient, d/w patient, d/w family ED course: Patient presenting for evaluation of dizziness, possible headaches that have been intermittent for at least months. She currently has no symptoms. She is somewhat vague in her description of these episodes and they do not necessarily sound vertiginous. No focal deficits noted. She had an outpatient CT scan on August 07 with no significant abnormality seen.Her labs are reassuring. She is asymptomatic here. Patient appeared to have a similar ED visit in 2015 for evaluation of vague dizziness.I recommend close follow-up with your primary care doctor and neurologist.She and her mother advised on concerning symptoms to return for. Departure - Departure Disposition: Home, Self Care Clinical Impression: Dizziness Condition: Stable Instructions: ED Dizziness [facility] Follow-Up: Francisco Barragan MD [Primary Care Provider] - Comments: The exact cause of your symptoms is unclear.It seems at they have been going on for months if not years. I would recommend follow-up with your neurologist and I would recommend making an appointment to discuss these episodes specifically. Please also have close follow-up with your primary care doctor. You recently had a CT of your brain which did not show any new findings. However your primary care doctor may want to order an outpatient MRI. If you have any worsening symptoms or any concerns please consider return to the emergency department.
[2022-08-10 17:31] LABS: BASOPHILS # (AUTO) 0.1 10^3/uL (0.0-0.1); BASOPHILS % (AUTO) 0.9 %; EOSINOPHILS # (AUTO) 0.1 10^3/uL (0.0-0.7); EOSINOPHILS % (AUTO) 1.2 %; HCT - HEMATOCRIT 39.7 % (37.0-47.0); HGB - HEMOGLOBIN 13.6 g/dL (12.0-16.0); LYMPHOCYTES # (AUTO) 1.9 10^3/uL (1.5-3.5); LYMPHOCYTES % (AUTO) 33.6 %; MEAN CORPUSCULAR HGB CONC 34.3 g/dL (32.0-36.0); MEAN CORPUSCULAR VOLUME 93.4 fL (81.0-99.0); MEAN PLATELET VOLUME 9.6 fL (7.9-10.8); MONOCYTES # (AUTO) 0.4 10^3/uL (0.0-1.0); MONOCYTES % (AUTO) 6.5 %; NEUTROPHILS # (AUTO) 3.3 10^3/uL (1.5-6.6); NEUTROPHILS % (AUTO) 57.5 %; PLT - PLATELET COUNT 307 10^3/uL (130-450); RED BLOOD COUNT 4.25 10^6/uL (4.20-5.40); RED CELL DISTRIBUTION WIDTH 11.7 % (12.0-15.0); WHITE BLOOD COUNT 5.7 x10^3/uL (4.8-10.8)
[2022-08-10 17:42] LABS: ALBUMIN 4.7 g/dL (3.2-5.5); ALBUMIN/GLOBULIN RATIO 1.4 (1.0-2.2); BILIRUBIN,TOTAL 0.5 mg/dL (0.2-1.0); CALCIUM 9.6 mg/dL (8.5-10.3); CREATININE 0.8 mg/dL (0.4-1.0); POTASSIUM 3.4 mmol/L (3.5-5.0)
[2022-08-10] MEDS ORDERED: POTASSIUM CHLORIDE 20 MEQ TABLET PO STA (17:44)
== END 2022-08-10 18:04 | disposition home or self-care (01) ==
LOC: ED 16:18
DX: R42 Dizziness and giddiness (principal)
CPT/HCPCS: 36415; 80053; 85025; 93005; 99282; 99283; A9270

== ENCOUNTER 2022-10-14 07:54 | Outpatient (CLI) | payer MEDICAID ==
[~2022-10-14 07:54] MED LIST: GADOBUTROL 10 MMOL/10 ML VIAL ONE
--- NOTE | 2022-10-14 12:53 | MRI Report ---
PROCEDURE: BRAIN W/WO INDICATIONS: SEIZURE DISORDER, TUBEROUS SCLEROSIS, MIGRAIN CONTRAST: 8.4ml gadavist TECHNIQUE: Noncontrast axial T1 spin echo, axial T2 fast spin echo, sagittal and axial FLAIR, coronal T2 fast sp in echo, axial gradient echo, axial diffusion and ADC through the brain. After the administration of contrast, axial and coronal T1 spin echo with fat saturation through the brain. COMPARISON: MRI dated 02/16/2019 FINDINGS: Image quality: Excellent. CSF spaces: Basal cisterns are patent. No extra-axial fluid collections. Ventricles are normal in size and shape. Brain: No midline shift. No intracranial bleeds. There are scattered regions of cortical and subcor tical high FLAIR signal intensity, predominantly within the bilateral posterolateral and superior fro ntal lobes as well as the bilateral anterior frontal lobes. No new lesions are seen. No abnormal intr acranial enhancement. There is cerebral volume loss for age. There is periventricular white matter chronic small vessel ischemic change. The brainstem appears normal. Diffusion-weighted images demon strate no acute ischemic insults. No chronic ischemic insults. Normal intravascular flow voids are present. Skull and face: Calvarial marrow is normal in signal. Orbits appear normal. Sinuses: Sinuses and mastoids appear clear. IMPRESSION: 1. No significant change in cortical and subcortical signal dramatic, compatible with stigmata of tub erous sclerosis complex. 2. No acute process. No recent infarct. Reviewed by: Ayse Conley MD on 10/14/2022 11:51 AM [place] Approved by: Ayse Conley MD on 10/14/2022 11:51 AM [facility] Station ID: [id number]
[2022-10-14] MEDS ORDERED: GADOBUTROL 10 MMOL/10 ML VIAL IVP ONE (17:09)
== END 2022-10-14 07:55 | disposition home or self-care (01) ==
LOC: DI 07:54
PROVIDERS: ATTEND Psychiatry & Neurology Neurology
DX: G40.219 Localization-related (focal) (partial) symptomatic epilepsy and epileptic syndromes with complex partial seizures, intractable, without status epilepticus (principal); Q85.1 Tuberous sclerosis
CPT/HCPCS: 70553; A9585

== ENCOUNTER 2022-10-17 13:02 | Outpatient (CLI) | payer MEDICAID ==
[2022-10-17 13:15] LABS: BASOPHILS # (AUTO) 0.1 10^3/uL (0.0-0.1); BASOPHILS % (AUTO) 0.9 %; EOSINOPHILS # (AUTO) 0.2 10^3/uL (0.0-0.7); EOSINOPHILS % (AUTO) 2.4 %; HCT - HEMATOCRIT 41.6 % (37.0-47.0); HGB - HEMOGLOBIN 13.8 g/dL (12.0-16.0); LYMPHOCYTES # (AUTO) 2.5 10^3/uL (1.5-3.5); LYMPHOCYTES % (AUTO) 37.7 %; MEAN CORPUSCULAR HEMOGLOBIN 31.6 pg (27.0-31.0); MEAN CORPUSCULAR HGB CONC 33.2 g/dL (32.0-36.0); MEAN CORPUSCULAR VOLUME 95.2 fL (81.0-99.0); MEAN PLATELET VOLUME 9.8 fL (7.9-10.8); MONOCYTES # (AUTO) 0.4 10^3/uL (0.0-1.0); MONOCYTES % (AUTO) 5.7 %; NEUTROPHILS # (AUTO) 3.5 10^3/uL (1.5-6.6); NEUTROPHILS % (AUTO) 53.1 %; PLT - PLATELET COUNT 305 10^3/uL (130-450); RED BLOOD COUNT 4.37 10^6/uL (4.20-5.40); RED CELL DISTRIBUTION WIDTH 11.9 % (12.0-15.0); WHITE BLOOD COUNT 6.6 x10^3/uL (4.8-10.8)
[2022-10-17 13:35] LABS: ALBUMIN 4.6 g/dL (3.2-5.5); ALBUMIN/GLOBULIN RATIO 1.4 (1.0-2.2); ALKALINE PHOSPHATASE 81 IU/L (42-121); ALT ALANINE AMINOTRANSFERASE 18 IU/L (10-60); AST ASPARTATE AMINOTRANSFERASE 16 IU/L (10-42); BILIRUBIN,TOTAL 0.6 mg/dL (0.2-1.0); BUN - BLOOD UREA NITROGEN 8 mg/dL (6-20); CALCIUM 9.8 mg/dL (8.5-10.3); CARBON DIOXIDE - CO2 26 mmol/L (21-32); CHLORIDE 103 mmol/L (101-111); CHOL/HDL RATIO 4.5 (<4.4); CHOLESTEROL 219 mg/dL; CREATININE 0.7 mg/dL (0.4-1.0); GFR - MDRD 100 (>89); GLUCOSE 99 mg/dL (70-100); HDL CHOLESTEROL 49 mg/dL; LDL CHOLESTEROL,CALCULATED 145 mg/dL; POTASSIUM 4.3 mmol/L (3.5-5.0); SODIUM 138 mmol/L (135-145); TOTAL PROTEIN 7.9 g/dL (6.7-8.2); TRIGLYCERIDES 127 mg/dL; VLDL CHOLESTEROL 25 mg/dL
--- NOTE | 2022-10-17 14:50 | XRAY Report ---
PROCEDURE: Hand 3 View LT INDICATIONS: LEFT HAND SPRAIN TECHNIQUE: 3 views of the hand(s) acquired. COMPARISON: None FINDINGS: Bones: No fractures or dislocations. No suspicious bony lesions. Soft tissues: No suspicious soft tissue calcifications. IMPRESSION: No bony abnormalities. Reviewed by: Betina Fernandez MD on 10/17/2022 2:49 PM PST Approved by: Betina Fernandez MD on 10/17/2022 2:49 PM PST Station ID: [id number]
== END 2022-10-17 13:03 | disposition home or self-care (01) ==
LOC: DI 13:02
PROVIDERS: ATTEND Internal Medicine
DX: S63.92XA Sprain of unspecified part of left wrist and hand, initial encounter (principal); E66.9 Obesity, unspecified; E78.5 Hyperlipidemia, unspecified; J34.0 Abscess, furuncle and carbuncle of nose; R42 Dizziness and giddiness; Q85.1 Tuberous sclerosis; Z79.899 Other long term (current) drug therapy
CPT/HCPCS: 36415; 80053; 80061; 83721; 84443; 85025

== ENCOUNTER 2022-10-28 12:42 | Outpatient (CLI) | payer MEDICAID | END 2022-10-28 23:59 | disposition critical access hospital (66) | LOC: EMS 12:42 | DX: G43.909 Migraine, unspecified, not intractable, without status migrainosus (principal); R42 Dizziness and giddiness; R11.0 Nausea; R53.83 Other fatigue | CPT/HCPCS: A0425; A0427; A0999 ==

== ENCOUNTER 2022-10-28 12:58 | Emergency (ER) | payer MEDICAID ==
[2022-10-28] MEDS ORDERED: KETOROLAC 15 MG/ML VIAL IVP STA (13:21)
--- NOTE | 2022-10-28 13:21 | ED Physician Documentation ---
PD HPI SEIZURE - Stated complaint Stated Complaint: MIGRAINE - Chief complaint Chief Complaint: Neuro - History obtained from History obtained from: Patient, EMS - History of Present Illness Timing - onset: Today Witnessed: Witnessed Number of seizures: Other (patient had onset of visual blurring right eye, felt confused, some shakiness but still awake and conversant. Family states patient seemed slightly confused. Then had onset of headache, more right side. No LOC. No seizure activity generally.) Description of seizure activity: Abscence (family say the patient did seem to have blank stare for short period (less than a minute) but was doing some purposeful movement during it.) Injury during seizure: None Associated symptoms: Headache (onset after) History of seizures: Known seizure disorder, Other (also history of migraines, with rx for sumatriptan by PMD.) Contributing factors: Changed meds (no change in seizure meds. Had Imitrex started recently PRn for headaches. Pt did not take it today with this headache.), Low blood sugar (Medics noted her blood sugar to be 65 at scene. She is not diabetic. Sugar was not that particularly low.). No: Off meds Similar symptoms before: No diagnosis (thought possible complex migraines as has not really fit seizure description.) Recently seen: Clinic Review of Systems Constitutional: denies: Fever, Chills Nose: denies: Rhinorrhea / runny nose, Congestion Throat: denies: Sore throat Cardiac: denies: Chest pain / pressure Respiratory: denies: Cough GI: reports: Nausea, Diarrhea. 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 ) Derm: None - Past Surgical History Past Surgical History: Yes HEENT: Myringotomy (tubes) - Present Medications Home Medications: Ambulatory Orders Medication Instructions Recorded Confirmed Ergocalciferol [Vitamin D2] 50,000 unit PO Q7D 01/11/17 10/28/22 Medroxyprogesterone Acetate 150 mg IM ONCE 10/18/18 02/26/21 [Depo-Provera] Prochlorperazine [Compazine] 5 mg PO Q6H PRN #20 tablet 10/28/22 Rosuvastatin Calcium [Crestor] 5 mg PO HS 10/28/22 10/28/22 lamoTRIgine [Lamictal] 150 mg PO BID 10/28/22 10/28/22 lamoTRIgine [Lamictal] 200 mg PO BID 10/28/22 10/28/22 - Allergies Allergies/Adverse Reactions: Allergies Allergy/AdvReac Type Severity Reaction Status Date / Time No Known Drug Allergies Allergy Verified 10/28/22 13:04 - Social History Does the pt smoke?: No Smoking Status: Never smoker Does the pt drink ETOH?: No Does the pt have substance abuse?: No - Immunizations Immunizations are current?: Yes - POLST Patient has POLST: No PD ED PE NORMAL - Vitals Vital signs reviewed: Yes - General General: Alert and oriented X 3, No acute distress, Well developed/nourished - HEENT HEENT: Atraumatic, Moist mucous membranes, Pharynx benign - Neck Neck: Supple, no meningeal sign, No adenopathy - Cardiac Cardiac: RRR, No murmur - Respiratory Respiratory: Clear bilaterally - Abdomen Abdomen: Soft, Non tender - Derm Derm: Normal color, Warm and dry - Neuro Neuro: Alert and oriented X 3, No motor deficit, No sensory deficit, Normal spee ch Results - Vitals Vitals: Vital Signs - 24 hr 10/28/22 10/28/22 10/28/22 13:04 13:27 15:04 Temperature 36.8 C Heart Rate 94 79 81 Respiratory 18 16 16 Rate Blood Pressure 140/73 H 140/73 H 113/97 H O2 Saturation 99 99 98 Oxygen O2 Source Room air - Labs Labs: Laboratory Tests 10/28/22 10/28/22 10/28/22 13:50 13:50 13:50 WBC 5.2 RBC 4.29 Hgb 13.5 Hct 40.2 MCV 93.7 MCH 31.5 H MCHC 33.6 RDW 12.2 Plt Count 286 MPV 10.0 Neut # (Auto) 2.1 Lymph # (Auto) 2.6 [place] # (Auto) 0.3 Eos # (Auto) 0.1 Baso # (Auto) 0.1 Absolute Nucleated RBC 0.00 Nucleated RBC % 0.0 Sodium 137 Potassium 3.4 L Chloride 103 Carbon Dioxide 26 Anion Gap 8.0 BUN 6 Creatinine 0.7 Estimated GFR (MDRD) 100 Glucose 75 Calcium 9.3 Magnesium 2.0 Total Bilirubin 0.7 AST 14 ALT 16 Alkaline Phosphatase 72 Total Protein 7.9 Albumin 4.4 Globulin 3.5 Albumin/Globulin Ratio 1.3 Lipase 25 Prolactin 7.27 PD Medical Decision Making - ED course Complexity details: reviewed results, considered differential (sounds more like migraine with preceding complex aura. Less sounding like seizure. ), d/w patient, d/w family Departure - Departure Disposition: 01 Home, Self Care Clinical Impression: Headache, Nausea Condition: Stable Record reviewed to determine appropriate education?: Yes Instructions: ED Headache Migraine Prescriptions: Prochlorperazine [Compazine] 5 mg PO Q6H PRN #20 tablet PRN Reason: Nausea / Vomiting Comments: Your symptoms sound probably more likely to be a complex migraine as opposed to partial complex seizures. Continue usual medications. Continue with the sumatriptan as needed for headache episodes/migraines. He can combine with it on nausea medicine Compazine that can also be useful for migraines. Add Tylenol if needed as well. Your basic blood tests were okay here. We did check a lamotrigine level but it is a send out and will not result for a day or 2. Follow-up with your primary care regarding that. Rest at home and stay well-hydrated. Regular diet. Discharge Date/Time: 10/28/22 15:18
[2022-10-28] MEDS ORDERED: PROCHLORPERAZINE 10 MG/2 ML VIAL IVP STA (13:22)
[2022-10-28 13:57] LABS: BASOPHILS # (AUTO) 0.1 10^3/uL (0.0-0.1); EOSINOPHILS # (AUTO) 0.1 10^3/uL (0.0-0.7); EOSINOPHILS % (AUTO) 1.9 %; HCT - HEMATOCRIT 40.2 % (37.0-47.0); HGB - HEMOGLOBIN 13.5 g/dL (12.0-16.0); LYMPHOCYTES # (AUTO) 2.6 10^3/uL (1.5-3.5); MEAN CORPUSCULAR HEMOGLOBIN 31.5 pg (27.0-31.0); MEAN CORPUSCULAR HGB CONC 33.6 g/dL (32.0-36.0); MEAN CORPUSCULAR VOLUME 93.7 fL (81.0-99.0); MONOCYTES # (AUTO) 0.3 10^3/uL (0.0-1.0); MONOCYTES % (AUTO) 6.3 %; NEUTROPHILS # (AUTO) 2.1 10^3/uL (1.5-6.6); NEUTROPHILS % (AUTO) 40.8 %; PLT - PLATELET COUNT 286 10^3/uL (130-450); RED BLOOD COUNT 4.29 10^6/uL (4.20-5.40); RED CELL DISTRIBUTION WIDTH 12.2 % (12.0-15.0); WHITE BLOOD COUNT 5.2 x10^3/uL (4.8-10.8)
[2022-10-28 14:14] LABS: ALBUMIN 4.4 g/dL (3.2-5.5); ALBUMIN/GLOBULIN RATIO 1.3 (1.0-2.2); BILIRUBIN,TOTAL 0.7 mg/dL (0.2-1.0); CALCIUM 9.3 mg/dL (8.5-10.3); CREATININE 0.7 mg/dL (0.4-1.0); POTASSIUM 3.4 mmol/L (3.5-5.0); TOTAL PROTEIN 7.9 g/dL (6.7-8.2)
[2022-10-28 15:05] VITALS: BP 113/97
== END 2022-10-28 15:18 | disposition home or self-care (01) ==
LOC: EDUNIT# → ED 12:58
DX: R51.9 Headache, unspecified (principal); R11.0 Nausea
CPT/HCPCS: 36415; 80053; 80175; 83690; 83735; 84146; 85025; 96374; 96375; 99283

== ENCOUNTER 2023-02-11 12:02 | Outpatient (CLI) | payer MEDICAID | END 2023-02-11 12:03 | disposition home or self-care (01) | LOC: LAB 12:02 | PROVIDERS: ATTEND Psychiatry & Neurology Neurology | DX: E55.9 Vitamin D deficiency, unspecified (principal); G40.219 Localization-related (focal) (partial) symptomatic epilepsy and epileptic syndromes with complex partial seizures, intractable, without status epilepticus | CPT/HCPCS: 36415; 80175; 81599; 82652 ==

== ENCOUNTER 2023-03-10 08:00 | Outpatient (CLI) | payer MEDICAID ==
[2023-03-10 22:11] LABS: BACTERIAL VAGINOSIS DNA NEGATIVE (NEGATIVE); CANDIDA GLABRATA DNA NEGATIVE (NEGATIVE); CANDIDA GROUP DNA NEGATIVE (NEGATIVE); CANDIDA KRUSEI DNA NEGATIVE (NEGATIVE); TRICHOMONAS VAGINALIS DNA NEGATIVE (NEGATIVE)
== END 2023-03-10 23:59 | disposition home or self-care (01) ==
LOC: LAB 08:00
PROVIDERS: ATTEND Nurse Practitioner
DX: N89.8 Other specified noninflammatory disorders of vagina (principal)
CPT/HCPCS: 81514

== ENCOUNTER 2023-03-18 10:46 | Outpatient (CLI) | payer MEDICAID ==
[2023-03-18 11:24] LABS: ALBUMIN 4.4 g/dL (3.2-5.5); ALBUMIN/GLOBULIN RATIO 1.2 (1.0-2.2); ALKALINE PHOSPHATASE 78 IU/L (42-121); ALT ALANINE AMINOTRANSFERASE 21 IU/L (10-60); AST ASPARTATE AMINOTRANSFERASE 15 IU/L (10-42); BILIRUBIN,TOTAL 0.5 mg/dL (0.2-1.0); BUN - BLOOD UREA NITROGEN 9 mg/dL (6-20); CALCIUM 9.3 mg/dL (8.5-10.3); CARBON DIOXIDE - CO2 26 mmol/L (21-32); CHLORIDE 104 mmol/L (101-111); CHOL/HDL RATIO 3.7 (<4.4); CHOLESTEROL 209 mg/dL; CREATININE 0.6 mg/dL (0.4-1.0); GFR - MDRD 119 (>89); GLUCOSE 90 mg/dL (70-100); HDL CHOLESTEROL 56 mg/dL; LDL CHOLESTEROL,CALCULATED 135 mg/dL; LDL/HDL RATIO 2.4 (<4.4); POTASSIUM 3.7 mmol/L (3.5-5.0); SODIUM 138 mmol/L (135-145); TRIGLYCERIDES 89 mg/dL; VLDL CHOLESTEROL 18 mg/dL
[2023-03-19 05:13] LABS: VITAMIN D 25-HYDROXY 46.8 ng/mL (30.0-100.0)
[2023-03-19 15:38] LABS: ESTIMATED AVERAGE GLUCOSE 88 mg/dL (70-100); HEMOGLOBIN A1c% 4.7 % (4.27-6.07)
[2023-03-20 12:09] LABS: LAMOTRIGINE (LAMICTAL) 10.1 ug/mL (2.0-20.0)
== END 2023-03-18 10:47 | disposition home or self-care (01) ==
LOC: LAB 10:46
PROVIDERS: ATTEND Internal Medicine
DX: G40.909 Epilepsy, unspecified, not intractable, without status epilepticus (principal); Q85.1 Tuberous sclerosis; E78.5 Hyperlipidemia, unspecified; Z79.899 Other long term (current) drug therapy
CPT/HCPCS: 36415; 80053; 80061; 80175; 82306; 83036; 83721; 83735

== ENCOUNTER 2023-11-22 10:09 | Outpatient (CLI) | payer MEDICAID ==
[2023-11-22 10:32] LABS: BASOPHILS # (AUTO) 0.1 10^3/uL (0.0-0.1); EOSINOPHILS # (AUTO) 0.2 10^3/uL (0.0-0.7); EOSINOPHILS % (AUTO) 2.2 %; HCT - HEMATOCRIT 39.4 % (37.0-47.0); LYMPHOCYTES # (AUTO) 2.6 10^3/uL (1.5-3.5); LYMPHOCYTES % (AUTO) 36.6 %; MEAN PLATELET VOLUME 9.8 fL (7.9-10.8); MONOCYTES # (AUTO) 0.4 10^3/uL (0.0-1.0); MONOCYTES % (AUTO) 5.9 %; NEUTROPHILS # (AUTO) 3.8 10^3/uL (1.5-6.6); NEUTROPHILS % (AUTO) 54.2 %; PLT - PLATELET COUNT 347 10^3/uL (130-450); RED BLOOD COUNT 4.06 10^6/uL (4.20-5.40); RED CELL DISTRIBUTION WIDTH 12.3 % (12.0-15.0)
[2023-11-22 10:55] LABS: ALBUMIN 4.4 g/dL (3.2-5.5); ALBUMIN/GLOBULIN RATIO 1.5 (1.0-2.2); ALKALINE PHOSPHATASE 87 IU/L (42-121); ALT ALANINE AMINOTRANSFERASE 19 IU/L (10-60); AST ASPARTATE AMINOTRANSFERASE 12 IU/L (10-42); BILIRUBIN,TOTAL 0.4 mg/dL (0.2-1.0); BUN - BLOOD UREA NITROGEN 9 mg/dL (6-20); CALCIUM 9.3 mg/dL (8.5-10.3); CARBON DIOXIDE - CO2 22 mmol/L (21-32); CHLORIDE 106 mmol/L (101-111); CHOL/HDL RATIO 4.3 (<4.4); CHOLESTEROL 201 mg/dL; CREATININE 0.8 mg/dL (0.6-1.3); GFR - MDRD 85 (>89); GLUCOSE 90 mg/dL (74-104); HDL CHOLESTEROL 47 mg/dL; LDL CHOLESTEROL,CALCULATED 135 mg/dL; LDL/HDL RATIO 2.9 (<4.4); MAGNESIUM 1.8 mg/dL (1.7-2.3); POTASSIUM 3.4 mmol/L (3.5-4.5); SODIUM 137 mmol/L (135-145); TOTAL PROTEIN 7.3 g/dL (6.4-8.9); TRIGLYCERIDES 95 mg/dL (48-352); VLDL CHOLESTEROL 19 mg/dL
[2023-11-22 11:11] LABS: THYROID STIMULATING HORMONE 1.39 uIU/mL (0.34-5.60)
== END 2023-11-22 10:10 | disposition home or self-care (01) ==
LOC: LAB 10:09
PROVIDERS: ATTEND Internal Medicine
DX: G40.909 Epilepsy, unspecified, not intractable, without status epilepticus (principal); E78.5 Hyperlipidemia, unspecified; Q85.1 Tuberous sclerosis; G44.89 Other headache syndrome; E66.9 Obesity, unspecified; L68.0 Hirsutism; F32.A Depression, unspecified; I34.0 Nonrheumatic mitral (valve) insufficiency; Z51.81 Encounter for therapeutic drug level monitoring; Z79.899 Other long term (current) drug therapy
CPT/HCPCS: 36415; 80053; 80061; 80175; 82607; 83721; 83735; 84443; 85025; 85651